=== PATIENT | male | born 1965 | race Caucasian/White ===

== ENCOUNTER 2016-12-18 00:51 | Inpatient (IN) | payer MEDICARE, MEDICAID ==
[~2016-12-18] VITALS: Ht 193 cm; Wt 92.0 kg
[2016-12-18] MEDS ORDERED: HYDROmorphone 1 MG/ML, 1ML IM ONE (02:00)
[2016-12-18] MEDS ORDERED: HYDROmorphone 1 MG/ML, 1ML ONE (02:31)
[2016-12-18] MEDS ORDERED: MORPHINE SULFATE 4 MG/ML, 1ML ONE ×2 (03:14→09:23)
[2016-12-18] MEDS ORDERED: ONDANSETRON 2MG/ML, 2ML ONE ×2 (03:14→16:16)
[2016-12-18] MEDS ORDERED: SODIUM CHLORIDE 0.9% 1,000 ML IV ONE (03:19)
[2016-12-18 03:24] LABS: HEMATOCRIT 42.3 % (39.2-51.8); HEMOGLOBIN 14.2 g/dL (13.7-18.0); WHITE BLOOD COUNT 9.4 x10^3/uL (3.4-10)
[2016-12-18] MEDS ORDERED: ONDANSETRON 2MG/ML, 2ML IVPush ONE (03:30)
[2016-12-18] MEDS ORDERED: MORPHINE SULFATE 4 MG/ML, 1ML IVPush PRN ×2 (03:30)
[2016-12-18] MEDS ORDERED: ONDANSETRON 2MG/ML, 2ML IVPush PRN ×2 (03:30→18:00)
[2016-12-18 03:32] LABS: BLOOD UREA NITROGEN 12 mg/dL (7-18)
[2016-12-18] MEDS ORDERED: HYDROmorphone 2 MG/ML, 1ML IVPush PRN (04:30)
[2016-12-18] MEDS ORDERED: POTASSIUM CHLORIDE 20 MEQ TAB.ER.PRT PO ONE (04:30)
[2016-12-18] MEDS ORDERED: POLYETHYLENE GLYCOL 17 GM PACKET PO PRN (04:30)
[2016-12-18] MEDS: ENOXAPARIN 40 MG/0.4 ML SQ SCH (04:30)
[2016-12-18] MEDS ORDERED: BISACODYL 10 MG SUPP PR PRN (04:30)
[2016-12-18] MEDS ORDERED: DOCUSATE 100 MG CAPSULE PO PRN (04:30)
[2016-12-18] MEDS: SODIUM CHLORIDE 0.9% 1,000 ML IV SCH ×2 (04:56→14:14)
[2016-12-18 05:09] LABS: IS PT STATUS REG ER OR PRE ER? NO
[2016-12-18] MEDS: INSULIN ASPART 100 UNITS/ML, PEN SQ-INSULIN SCH ×4 (06:27→21:00)
[2016-12-18] MEDS: MORPHINE SULFATE 4 MG/ML, 1ML IVPush PRN ×7 (06:29→22:49)
[2016-12-18] MEDS: FAMOTIDINE 20 MG/2 ML IVPush SCH ×2 (09:00→21:00)
[2016-12-18 14:35] VITALS: BP 119/68
[2016-12-18] MEDS ORDERED: HYDROmorphone 2 MG/ML, 1ML ONE (16:12)
[2016-12-18] MEDS ORDERED: MIDAZOLAM 1 MG/ML, 2ML ONE (16:12)
[2016-12-18] MEDS ORDERED: FENTANYL PF 100 MCG/2ML ONE ×5 (16:12→19:53)
[2016-12-18] MEDS ORDERED: ROCURONIUM 10 MG/ML ONE (16:16)
[2016-12-18] MEDS ORDERED: SUCCINYLCHOLINE 20 MG/ML, 10ML ONE (16:16)
[2016-12-18] MEDS ORDERED: CEFAZOLIN 1,000 MG ONE (16:16)
[2016-12-18] MEDS ORDERED: PROPOFOL 10 MG/ML, 20ML ONE (16:16)
[2016-12-18] MEDS ORDERED: hydrALAzine 20 MG/ML, 1ML IV PRN (18:00)
[2016-12-18] MEDS ORDERED: ACETAMINOPHEN 325 MG TABLET PO PRN (18:00)
[2016-12-18] MEDS ORDERED: LABETALOL 5MG/ML, 20ML IV PRN (18:00)
[2016-12-18] MEDS ORDERED: HYDROmorphone 1 MG/ML, 1ML IV PRN (18:00)
[2016-12-18] MEDS ORDERED: METOCLOPRAMIDE 5 MG/ML, 2ML IV PRN (18:00)
[2016-12-18] MEDS ORDERED: OXYcodone 5 MG/5 ML ORAL.SOL UDC PO PRN (18:00)
[2016-12-18] MEDS ORDERED: OXYcodone 5 MG/5 ML ORAL.SOL UDC ONE (19:20)
[2016-12-18] MEDS ORDERED: ACETAMINOPHEN 650 MG/20.3 ML UDC ONE (19:20)
[2016-12-18] MEDS: FENTANYL PF 100 MCG/2ML IV PRN ×4 (19:22→20:00)
[2016-12-18] MEDS ORDERED: LEVO50TA5 PO (23:15)
[2016-12-18] MEDS ORDERED: ATOR20TA9 PO (23:15)
[2016-12-18] MEDS ORDERED: elavil PO (23:15)
[2016-12-18] MEDS ORDERED: CLON2TAB PO (23:15)
[2016-12-18] MEDS ORDERED: INSU100V8 SQ (23:15)
[2016-12-18] MEDS ORDERED: OXYC10TA6 PO (23:15)
[2016-12-19 00:01] VITALS: BP 104/59
[2016-12-19] MEDS: MORPHINE SULFATE 4 MG/ML, 1ML IVPush PRN ×4 (01:17→08:47)
[2016-12-19] MEDS: CEFAZOLIN PMX 2GM/50ML 50 ML IVPB SCH ×2 (01:17→09:59)
[2016-12-19 04:00] VITALS: BP 98/65
[2016-12-19 05:20] LABS: ASPARTATE AMINO TRANSFERASE 7 U/L (15-37); BLOOD UREA NITROGEN 17 mg/dL (7-18)
[2016-12-19 05:25] LABS: HEMATOCRIT 33.2 % (39.2-51.8); HEMOGLOBIN 11.1 g/dL (13.7-18.0); WHITE BLOOD COUNT 7.7 x10^3/uL (3.4-10)
[2016-12-19] MEDS: SODIUM CHLORIDE 0.9% 1,000 ML IV SCH ×2 (06:25→14:30)
[2016-12-19] MEDS: INSULIN ASPART 100 UNITS/ML, PEN SQ-INSULIN SCH ×4 (07:00→21:00)
[2016-12-19 08:02] VITALS: BP 113/73
[2016-12-19] MEDS: ENOXAPARIN 40 MG/0.4 ML SQ SCH (08:47)
[2016-12-19] MEDS ORDERED: OXYcodone IR 5MG TABLET PO PRN (09:00)
[2016-12-19] MEDS ORDERED: OXYcodone IR 5MG TABLET ONE ×2 (09:57→20:25)
[2016-12-19 12:07] VITALS: BP 110/66
[2016-12-19] MEDS: OXYcodone IR 30 MG TABLET PO PRN ×3 (12:09→20:30)
[2016-12-19 19:51] VITALS: BP 120/71
[2016-12-19] MEDS: FAMOTIDINE 20 MG TABLET PO SCH (21:00)
[2016-12-20] MEDS: SODIUM CHLORIDE 0.9% 1,000 ML IV SCH ×3 (00:30→20:26)
[2016-12-20 01:07] VITALS: BP 126/65
[2016-12-20] MEDS ORDERED: OXYcodone IR 5MG TABLET ONE (04:24)
[2016-12-20] MEDS: OXYcodone IR 30 MG TABLET PO PRN ×5 (04:30→21:24)
[2016-12-20] MEDS: INSULIN ASPART 100 UNITS/ML, PEN SQ-INSULIN SCH ×4 (07:00→21:00)
[2016-12-20 08:40] VITALS: BP 109/61
[2016-12-20] MEDS: FAMOTIDINE 20 MG TABLET PO SCH ×2 (08:47→21:24)
[2016-12-20] MEDS: ENOXAPARIN 40 MG/0.4 ML SQ SCH (08:47)
[2016-12-20 12:50] VITALS: BP 103/67
[2016-12-20 19:25] VITALS: BP 95/58
[2016-12-21 02:33] VITALS: BP 102/63
[2016-12-21] MEDS: OXYcodone IR 30 MG TABLET PO PRN ×5 (04:09→21:07)
[2016-12-21] MEDS: SODIUM CHLORIDE 0.9% 1,000 ML IV SCH ×2 (05:21→16:30)
[2016-12-21 05:30] LABS: HEMOGLOBIN 10.4 g/dL (13.7-18.0); WHITE BLOOD COUNT 7.2 x10^3/uL (3.4-10)
[2016-12-21 05:41] LABS: BLOOD UREA NITROGEN 12 mg/dL (7-18)
[2016-12-21] MEDS: INSULIN ASPART 100 UNITS/ML, PEN SQ-INSULIN SCH ×4 (07:40→21:00)
[2016-12-21 08:24] VITALS: BP 103/56
[2016-12-21] MEDS ORDERED: OXYcodone IR 5MG TABLET ONE (08:27)
[2016-12-21] MEDS: ENOXAPARIN 40 MG/0.4 ML SQ SCH (08:31)
[2016-12-21] MEDS: FAMOTIDINE 20 MG TABLET PO SCH ×2 (10:39→21:07)
[2016-12-21 14:00] VITALS: BP 101/59
[2016-12-21 19:10] VITALS: BP 101/57
[2016-12-22] MEDS: SODIUM CHLORIDE 0.9% 1,000 ML IV SCH (02:30)
[2016-12-22 02:37] VITALS: BP 94/52
[2016-12-22] MEDS: OXYcodone IR 30 MG TABLET PO PRN ×3 (06:09→14:05)
[2016-12-22] MEDS ORDERED: ENOX40SY4 SQ (06:13)
[2016-12-22] MEDS: INSULIN ASPART 100 UNITS/ML, PEN SQ-INSULIN SCH ×2 (07:00→11:00)
[2016-12-22 08:00] VITALS: BP 109/66
[2016-12-22] MEDS: ENOXAPARIN 40 MG/0.4 ML SQ SCH (08:38)
[2016-12-22] MEDS: FAMOTIDINE 20 MG TABLET PO SCH (08:38)
[2016-12-22] MEDS ORDERED: PNEUMOCOCCAL 23 VACCINE IM-VACC ONE (10:30)
[2016-12-22] MEDS ORDERED: IBUPROFEN 200 MG TABLET PO PRN (11:00)
[2016-12-22 12:35] VITALS: BP 97/58
[2016-12-22 14:05] VITALS: BP 98/56
== END 2016-12-22 14:15 | DRG 480 ==
LOC: ED 03:10 → EDIP 03:19 → 4NOR 04:30
PROVIDERS: ADMIT Hospitalist; ATTEND Internal Medicine
PROC: 0QS604Z Reposition Right Upper Femur with Internal Fixation Device, Open Approach (ICD-10-PCS; principal; 2016-12-18 14:30)
DX: S72.001A Fracture of unspecified part of neck of right femur, initial encounter for closed fracture (principal); E43 Unspecified severe protein-calorie malnutrition; D62 Acute posthemorrhagic anemia; E11.9 Type 2 diabetes mellitus without complications; E87.6 Hypokalemia; F41.9 Anxiety disorder, unspecified; F17.210 Nicotine dependence, cigarettes, uncomplicated; G89.29 Other chronic pain; F11.90 Opioid use, unspecified, uncomplicated; M54.9 Dorsalgia, unspecified; Z68.24 Body mass index [BMI] 24.0-24.9, adult; Z88.1 Allergy status to other antibiotic agents; Z88.5 Allergy status to narcotic agent; Z88.0 Allergy status to penicillin; Z88.2 Allergy status to sulfonamides; Z88.8 Allergy status to other drugs, medicaments and biological substances; V92.09XA Drowning and submersion due to fall off unspecified watercraft, initial encounter; Y93.89 Activity, other specified; Y92.89 Other specified places as the place of occurrence of the external cause; Y99.8 Other external cause status
CPT/HCPCS: 36415; 72170; 76001; 80048; 80053; 82040; 82962; 83036; 84484; 85025; 85610; 90732; 93005; 96374; 96375; C1713; J0690; J1170; J1650; J1815; J2250; J2405; J2704; J3010; J0330; J7030

== ENCOUNTER → 2017-06-30 | Outpatient (CLI) | payer MEDICARE, MEDICAID ==
[~2017-06-30] MED LIST: ATOR20TA9 PO; CLON2TAB PO; ENOX40SY4 SQ; INSU100V8 SQ; LEVO50TA5 PO; OXYC10TA6 PO; elavil PO
[2017-06-30 15:11] LABS: BASOPHILS # (AUTO) 0.03 x10^3/uL (0-0.1); BASOPHILS % (AUTO) 0 % (0-1); EOSINOPHILS # (AUTO) 0.15 x10^3/uL (0-0.4); EOSINOPHILS % (AUTO) 1 % (1-7); LYMPHOCYTES # (AUTO) 2.61 x10^3/uL (1-3.4); LYMPHOCYTES % (AUTO) 25 % (22-44); MD NO; MEAN CORPUSCULAR HEMOGLOBIN 29.9 pg (27.5-34.5); MEAN CORPUSCULAR HGB CONC 33.5 g/dL (33.2-36.2); MEAN CORPUSCULAR VOLUME 89.3 fL (81-97); MEAN PLATELET VOLUME 7.4 fL (7.4-10.4); MONOCYTES # (AUTO) 0.36 x10^3/uL (0.2-0.8); MONOCYTES % (AUTO) 4 % (2-9); NEUTROPHILS # (AUTO) 7.25 x10^3/uL (1.8-6.8); NEUTROPHILS % (AUTO) 70 % (42-75); PLATELET COUNT 542 x10^3/uL (130-400); RED BLOOD COUNT 4.79 x10^6/uL (4.38-5.82); RED CELL DISTRIBUTION WIDTH 15.3 % (9.4-14.8)
[2017-06-30 15:15] LABS: MICROSCOPIC AUTO
[2017-06-30 15:20] LABS: CULTURE INDICATED? YES
[2017-06-30 15:23] LABS: ANION GAP 6 mmol/L (5-15); CALCIUM 9.7 mg/dL (8.5-10.1); CHLORIDE 107 mmol/L (98-107)
[2017-06-30 15:27] LABS: ALANINE AMINOTRANSFERASE 14 U/L (12-78); ALKALINE PHOSPHATASE 106 U/L (45-117); BILIRUBIN,TOTAL 0.6 mg/dL (0.2-1.0); CREATININE 0.79 mg/dL (0.7-1.3); TOTAL PROTEIN 7.9 g/dL (6.4-8.2)
== END ==
LOC: STAR 13:58
PROVIDERS: ATTEND Orthopaedic Surgery
DX: Z01.818 Encounter for other preprocedural examination (principal); M25.551 Pain in right hip; M16.11 Unilateral primary osteoarthritis, right hip; R82.99 Other abnormal findings in urine
CPT/HCPCS: 36415; 80053; 81001; 85025; 87077; 87081; 87086; 93005

== ENCOUNTER 2017-07-08 06:37 | Inpatient (IN) | payer MEDICARE, MEDICAID ==
[~2017-07-08] VITALS: Ht 193 cm; Wt 86.5 kg
[2017-07-08] MEDS ORDERED: LACTATED RINGERS 1,000 ML IV SCH (07:37)
[2017-07-08] MEDS ORDERED: AMIT10TA PO ×2 (08:17)
[2017-07-08] MEDS ORDERED: NAPR-685 PO (08:17)
[2017-07-08] MEDS ORDERED: SCOPOLAMINE PATCH, 1.5MG PATCH.TD72 TD ONE ×3 (08:23→13:00)
[2017-07-08] MEDS ORDERED: TRANEXAMIC ACID 100 MG/ML, 10ML ONE (08:39)
[2017-07-08] MEDS ORDERED: morphine SULFATE/PF 1 MG/ML, 10ML ONE (08:39)
[2017-07-08] MEDS ORDERED: KETOROLAC 60 MG/2 ML ONE (08:39)
[2017-07-08] MEDS ORDERED: MIDAZOLAM 1 MG/ML, 2ML ONE (08:43)
[2017-07-08] MEDS ORDERED: SUFentanil 50 MCG/ML, 2ML ONE (08:43)
[2017-07-08] MEDS ORDERED: KETAMINE 10 MG/ML, 20ML ONE (08:43)
[2017-07-08] MEDS ORDERED: CLINDAMYCIN 150 MG/ML, 6ML ONE (09:13)
[2017-07-08] MEDS ORDERED: SUCCINYLCHOLINE 20 MG/ML, 10ML ONE (09:25)
[2017-07-08] MEDS ORDERED: VASOPRESSIN 20 UNIT/ML, 1ML ONE (09:25)
[2017-07-08] MEDS ORDERED: ONDANSETRON 2MG/ML, 2ML ONE (09:25)
[2017-07-08] MEDS ORDERED: DEXAMETHASONE 4 MG/ML, 1ML ONE (09:25)
[2017-07-08] MEDS ORDERED: PROPOFOL 10 MG/ML, 20ML ONE (09:25)
[2017-07-08] MEDS ORDERED: ROCURONIUM 10 MG/ML,10ML ONE (09:25)
[2017-07-08] MEDS ORDERED: SODIUM CHLORIDE 0.9% 100 ML ONE (09:34)
[2017-07-08] MEDS ORDERED: EPINEPHRINE 1 MG/ML, 1ML ONE (09:34)
[2017-07-08] MEDS ORDERED: MIDAZOLAM 1 MG/ML, 2ML IV PRN (10:30)
[2017-07-08] MEDS ORDERED: LORazepam 2 MG/ML, 1ML IVPush PRN (10:30)
[2017-07-08] MEDS ORDERED: FENTANYL PF 100 MCG/2ML IV PRN (10:30)
[2017-07-08] MEDS ORDERED: ACETAMINOPHEN 325 MG TABLET PO PRN (10:30)
[2017-07-08] MEDS ORDERED: EPHEDRINE 50 MG/ML, 1ML IVPush PRN (10:30)
[2017-07-08] MEDS ORDERED: MEPERIDINE/PF 25MG/0.5ML IVPush PRN (10:30)
[2017-07-08] MEDS ORDERED: PROMETHAZINE 12.5 MG SUPP PR PRN ×2 (10:30→13:00)
[2017-07-08] MEDS ORDERED: ONDANSETRON 2MG/ML, 2ML IVPush PRN (10:30)
[2017-07-08] MEDS ORDERED: LABETALOL 5MG/ML, 20ML IV PRN (10:30)
[2017-07-08] MEDS ORDERED: PROMETHAZINE 25 MG/ML, 1ML IV PRN (10:30)
[2017-07-08] MEDS ORDERED: PROMETHAZINE 25 MG/ML, 1ML IM PRN (13:00)
[2017-07-08] MEDS ORDERED: ONDANSETRON 4 MG TABLET PO PRN (13:00)
[2017-07-08] MEDS ORDERED: MAGNESIUM HYDROXIDE 8%, 30ML UDC PO PRN (13:00)
[2017-07-08] MEDS ORDERED: ALUMINUM/MAG/SIMETHICONE 30 ML UDC PO PRN (13:00)
[2017-07-08] MEDS ORDERED: ONDANSETRON 2MG/ML, 2ML IV PRN (13:00)
[2017-07-08] MEDS ORDERED: SENNA/DOCUSATE TABLET PO PRN (13:00)
[2017-07-08] MEDS ORDERED: BISACODYL 10 MG SUPP PR PRN (13:00)
[2017-07-08] MEDS ORDERED: morphine SULFATE 10 MG/ML, 1ML ONE (13:04)
[2017-07-08] MEDS ORDERED: ACETAMINOPHEN 650 MG/20.3 ML UDC ONE (13:04)
[2017-07-08] MEDS ORDERED: OXYcodone 5 MG/5 ML ORAL.SOL UDC ONE ×2 (13:04→13:17)
[2017-07-08] MEDS: OXYcodone 5 MG/5 ML ORAL.SOL UDC PO PRN ×2 (13:08→13:19)
[2017-07-08] MEDS: morphine SULFATE 10 MG/ML, 1ML IV PRN ×4 (13:11→21:23)
[2017-07-08 14:01] VITALS: BP 102/64
[2017-07-08] MEDS ORDERED: CLINDAMYCIN PMX 600MG/50ML 50 ML IVPB SCH (15:00)
[2017-07-08] MEDS ORDERED: SODIUM CHLORIDE 0.9% 1,000ML IVBOLUS ONE (16:00)
[2017-07-08] MEDS: CLINDAMYCIN PMX 600MG/50ML 50 ML IVPB SCH (17:00)
[2017-07-08] MEDS: ASPIRIN 325 MG TABLET EC PO SCH (18:23)
[2017-07-08 19:56] VITALS: BP 100/58
[2017-07-08 20:15] VITALS: BP 100/58
[2017-07-08] MEDS: OXYcodone IR 5MG TABLET PO PRN ×2 (20:37→23:53)
[2017-07-08] MEDS: SODIUM CHLORIDE 0.9% 1,000 ML IV SCH (21:24)
[2017-07-08] MEDS: AMITRIPTYLINE 10 MG TABLET PO SCH (22:35)
[2017-07-08] MEDS: LEVOTHYROXINE 50 MCG TABLET PO SCH (22:36)
[2017-07-08] MEDS: ATORVASTATIN 20 MG TABLET PO SCH (22:36)
[2017-07-08 23:34] VITALS: BP 96/51
[2017-07-09] MEDS: CLINDAMYCIN PMX 600MG/50ML 50 ML IVPB SCH (00:44)
[2017-07-09] MEDS: OXYcodone IR 5MG TABLET PO PRN ×4 (03:56→20:05)
[2017-07-09 04:00] VITALS: BP 90/56
[2017-07-09 05:42] LABS: BASOPHILS # (AUTO) 0.01 x10^3/uL (0-0.1); BASOPHILS % (AUTO) 0 % (0-1); EOSINOPHILS # (AUTO) 0.02 x10^3/uL (0-0.4); EOSINOPHILS % (AUTO) 0 % (1-7); LYMPHOCYTES # (AUTO) 1.51 x10^3/uL (1-3.4); LYMPHOCYTES % (AUTO) 20 % (22-44); MD NO; MEAN CORPUSCULAR HEMOGLOBIN 29.7 pg (27.5-34.5); MEAN CORPUSCULAR HGB CONC 33.3 g/dL (33.2-36.2); MEAN CORPUSCULAR VOLUME 89.3 fL (81-97); MEAN PLATELET VOLUME 7.7 fL (7.4-10.4); MONOCYTES # (AUTO) 0.51 x10^3/uL (0.2-0.8); MONOCYTES % (AUTO) 7 % (2-9); NEUTROPHILS # (AUTO) 5.37 x10^3/uL (1.8-6.8); NEUTROPHILS % (AUTO) 72 % (42-75); PLATELET COUNT 158 x10^3/uL (130-400); RED BLOOD COUNT 2.63 x10^6/uL (4.38-5.82); RED CELL DISTRIBUTION WIDTH 15.6 % (9.4-14.8)
[2017-07-09] MEDS: morphine SULFATE 10 MG/ML, 1ML IV PRN (06:29)
[2017-07-09] MEDS: ASPIRIN 325 MG TABLET EC PO SCH ×2 (06:29→17:11)
[2017-07-09] MEDS: SODIUM CHLORIDE 0.9% 1,000 ML IV SCH ×2 (06:51→16:26)
[2017-07-09 08:27] VITALS: BP 113/53
[2017-07-09] MEDS: AMITRIPTYLINE 10 MG TABLET PO SCH ×2 (08:32→20:04)
[2017-07-09] MEDS: KETOROLAC 30 MG/1 ML IV SCH ×2 (13:23→20:05)
[2017-07-09] MEDS: ATORVASTATIN 20 MG TABLET PO SCH (20:05)
[2017-07-09] MEDS: LEVOTHYROXINE 50 MCG TABLET PO SCH (20:05)
[2017-07-09 20:13] VITALS: BP 128/72
[2017-07-10] MEDS: SODIUM CHLORIDE 0.9% 1,000 ML IV SCH ×3 (03:00→23:00)
[2017-07-10] MEDS: OXYcodone IR 5MG TABLET PO PRN ×4 (05:26→20:17)
[2017-07-10] MEDS: ASPIRIN 325 MG TABLET EC PO SCH ×2 (05:26→18:00)
[2017-07-10] MEDS: KETOROLAC 30 MG/1 ML IV SCH (05:26)
[2017-07-10 08:00] VITALS: BP 103/62
[2017-07-10] MEDS: AMITRIPTYLINE 10 MG TABLET PO SCH ×2 (08:53→20:17)
[2017-07-10 15:04] VITALS: BP 92/54
[2017-07-10 19:32] VITALS: BP 95/64
[2017-07-10] MEDS: ATORVASTATIN 20 MG TABLET PO SCH (20:17)
[2017-07-10] MEDS: LEVOTHYROXINE 50 MCG TABLET PO SCH (20:17)
[2017-07-11] MEDS: OXYcodone IR 5MG TABLET PO PRN ×2 (04:35→08:58)
[2017-07-11 04:38] VITALS: BP 108/62
[2017-07-11] MEDS: ASPIRIN 325 MG TABLET EC PO SCH (06:26)
[2017-07-11] MEDS: SODIUM CHLORIDE 0.9% 1,000 ML IV SCH (07:41)
[2017-07-11 08:20] VITALS: BP 92/52
[2017-07-11] MEDS: AMITRIPTYLINE 10 MG TABLET PO SCH (08:57)
[2017-07-11 09:01] VITALS: BP 96/51
[2017-07-11] MEDS ORDERED: DOCU-131 PO (09:21)
[2017-07-11] MEDS ORDERED: ASPI-650 PO (09:22)
[2017-07-11] MEDS ORDERED: OXYC5TAB3 PO (09:23)
== END 2017-07-11 11:50 | disposition home or self-care (01) | DRG 470 ==
LOC: ORIP 06:37 → 4NOR 14:14
PROVIDERS: ADMIT Orthopaedic Surgery; ATTEND Orthopaedic Surgery
PROC: 01QF0ZZ Repair Sciatic Nerve, Open Approach (ICD-10-PCS; 2017-07-08)
PROC: 0SR901Z Replacement of Right Hip Joint with Metal Synthetic Substitute, Open Approach (ICD-10-PCS; principal; 2017-07-08 08:30)
DX: T84.84XA Pain due to internal orthopedic prosthetic devices, implants and grafts, initial encounter (principal); Z96.641 Presence of right artificial hip joint; E11.9 Type 2 diabetes mellitus without complications; Z88.0 Allergy status to penicillin; Y83.8 Other surgical procedures as the cause of abnormal reaction of the patient, or of later complication, without mention of misadventure at the time of the procedure; Y92.89 Other specified places as the place of occurrence of the external cause; Z88.1 Allergy status to other antibiotic agents; Z88.2 Allergy status to sulfonamides; Z88.8 Allergy status to other drugs, medicaments and biological substances
CPT/HCPCS: 36415; 82962; 85014; 85018; 85025; 86850; 86900; C1713; J0171; J1100; J1885; J2250; J2274; J2405; J2704; C1776; J0330; J2270; J7030; J7120

== ENCOUNTER → 2018-03-18 | Outpatient (CLI) | payer MEDICARE, MEDICAID ==
[~2018-03-18] MED LIST changes: +AMIT10TA PO; +ASPI-650 PO; +DOCU-131 PO; +NAPR-685 PO; +OXYC5TAB3 PO
[2018-03-18 12:27] LABS: BASOPHILS # (AUTO) 0.04 x10^3/uL (0-0.1); BASOPHILS % (AUTO) 0 % (0-1); EOSINOPHILS # (AUTO) 0.11 x10^3/uL (0-0.4); EOSINOPHILS % (AUTO) 1 % (1-7); LYMPHOCYTES # (AUTO) 2.37 x10^3/uL (1-3.4); LYMPHOCYTES % (AUTO) 29 % (22-44); MD NO; MEAN CORPUSCULAR HEMOGLOBIN 30.7 pg (27.5-34.5); MEAN CORPUSCULAR HGB CONC 33.9 g/dL (33.2-36.2); MEAN CORPUSCULAR VOLUME 90.5 fL (81-97); MEAN PLATELET VOLUME 7.8 fL (7.4-10.4); MONOCYTES # (AUTO) 0.53 x10^3/uL (0.2-0.8); MONOCYTES % (AUTO) 7 % (2-9); NEUTROPHILS # (AUTO) 5.13 x10^3/uL (1.8-6.8); NEUTROPHILS % (AUTO) 63 % (42-75); PLATELET COUNT 230 x10^3/uL (130-400); RED BLOOD COUNT 4.86 x10^6/uL (4.38-5.82); RED CELL DISTRIBUTION WIDTH 14.5 % (9.4-14.8)
[2018-03-18 12:38] LABS: ALANINE AMINOTRANSFERASE 17 U/L (12-78); ALBUMIN 4.7 g/dL (3.4-5.0); ANION GAP 7 mmol/L (5-15); CALCIUM 9.4 mg/dL (8.5-10.1); CHLORIDE 107 mmol/L (98-107); INTERNATIONAL NORMALIZED RATIO 0.95 (0.93-1.1); PROTHROMBIN TIME 10.1 Seconds (9.6-11.5)
[2018-03-18 12:41] LABS: ALKALINE PHOSPHATASE 120 U/L (45-117); BILIRUBIN,TOTAL 0.7 mg/dL (0.2-1.0); TOTAL PROTEIN 8.2 g/dL (6.4-8.2)
[2018-03-18 12:43] LABS: MICROSCOPIC INDICATED
[2018-03-18 12:46] LABS: HEMOGLOBIN A1C 5.8 % (4.2-6.3)
[2018-03-18 12:58] LABS: CULTURE INDICATED? NO
== END | disposition home or self-care (01) ==
LOC: STAR 11:01
PROVIDERS: ATTEND Orthopaedic Surgery
DX: Z01.818 Encounter for other preprocedural examination (principal); M17.11 Unilateral primary osteoarthritis, right knee
CPT/HCPCS: 36415; 80053; 81001; 83036; 85025; 85610; 85730; 87081; 87806; 93005; G0475

== ENCOUNTER 2018-03-22 06:47 | Observation (INO) | payer MEDICARE, MEDICAID ==
[~2018-03-22] VITALS: Ht 190.5 cm; Wt 96.8 kg
[~2018-03-22 06:47] MED LIST changes: +ATOR20TA37 PO; -ATOR20TA9 PO; +EPINEPHRINE 1 MG/ML, 1ML ONE; +KETOROLAC 60 MG/2 ML ONE; +ROPIvacaine/PF 0.2%, 20 ML ONE; +TRANEXAMIC ACID 100 MG/ML, 10ML ONE
[2018-03-22] MEDS ORDERED: LACTATED RINGERS 1,000 ML IV SCH (07:18)
[2018-03-22] MEDS ORDERED: ACETAMINOPHEN 500 MG TABLET PO ONE (07:30)
[2018-03-22 07:43] VITALS: BP 103/70
[2018-03-22] MEDS ORDERED: MIDAZOLAM 1 MG/ML, 2ML ONE (08:09)
[2018-03-22] MEDS ORDERED: FENTANYL PF 250 MCG/5ML ONE (08:09)
[2018-03-22] MEDS ORDERED: PROMETHAZINE 12.5 MG SUPP PR PRN (09:00)
[2018-03-22] MEDS ORDERED: PROMETHAZINE 25 MG/ML, 1ML IM PRN (09:00)
[2018-03-22] MEDS ORDERED: ALUMINUM/MAG/SIMETHICONE 30 ML UDC PO PRN (09:00)
[2018-03-22] MEDS ORDERED: BISACODYL 10 MG SUPP PR PRN (09:00)
[2018-03-22] MEDS ORDERED: TRANEXAMIC ACID 1,000 MG in SODIUM CHLORIDE 0.9% 100 ML IVPB ONE (09:00)
[2018-03-22] MEDS ORDERED: ONDANSETRON 2MG/ML, 2ML IV PRN ×2 (09:00→10:00)
[2018-03-22] MEDS ORDERED: DIPHENHYDRAMINE 25 MG CAPSULE PO PRN (09:00)
[2018-03-22] MEDS: TAMSULOSIN 0.4 MG CAP.ER.24H PO SCH (09:00)
[2018-03-22] MEDS ORDERED: ONDANSETRON 4 MG TABLET PO PRN (09:00)
[2018-03-22] MEDS ORDERED: ACETAMINOPHEN 650 MG/20.3 ML UDC PO PRN (09:00)
[2018-03-22] MEDS ORDERED: MAGNESIUM HYDROXIDE 8%, 30ML UDC PO PRN (09:00)
[2018-03-22] MEDS ORDERED: SENNA/DOCUSATE TABLET PO PRN (09:00)
[2018-03-22] MEDS: DOCUSATE 100 MG CAPSULE PO SCH ×2 (09:00→22:51)
[2018-03-22] MEDS ORDERED: morphine SULFATE 10 MG/ML, 1ML IV PRN (09:00)
[2018-03-22] MEDS ORDERED: PROMETHAZINE 25 MG/ML, 1ML IV PRN (10:00)
[2018-03-22] MEDS ORDERED: MIDAZOLAM 1 MG/ML, 2ML IV PRN (10:00)
[2018-03-22] MEDS ORDERED: MEPERIDINE/PF 25MG/0.5ML IVPush PRN (10:00)
[2018-03-22] MEDS ORDERED: hydrALAzine 20 MG/ML, 1ML IV PRN (10:00)
[2018-03-22] MEDS ORDERED: OXYcodone 5 MG/5 ML ORAL.SOL UDC PO PRN (10:00)
[2018-03-22] MEDS ORDERED: MORPHINE SULFATE 4 MG/ML, 1ML IVPush PRN (10:00)
[2018-03-22] MEDS ORDERED: FENTANYL PF 100 MCG/2ML IV PRN (10:00)
[2018-03-22] MEDS ORDERED: LABETALOL 5MG/ML, 20ML IV PRN (10:00)
[2018-03-22] MEDS ORDERED: ALBUTEROL/IPRATROPIUM 2.5MG/0.5MG, 3 ML NPPB PRN (10:00)
[2018-03-22] MEDS ORDERED: BUPIVACAINE/PF-EPI 0.5% 1:200K ONE (10:35)
[2018-03-22] MEDS ORDERED: ONDANSETRON 2MG/ML, 2ML ONE (10:37)
[2018-03-22] MEDS ORDERED: PROPOFOL 10 MG/ML, 20ML ONE (10:37)
[2018-03-22] MEDS ORDERED: DEXAMETHASONE 4 MG/ML, 1ML ONE (10:37)
[2018-03-22] MEDS ORDERED: CEFAZOLIN 1,000 MG ONE (10:37)
[2018-03-22] MEDS ORDERED: BUPIVACAINE/PF-EPI 0.5% 1:200K INFIL ONE (10:38)
[2018-03-22] MEDS ORDERED: BUPIVACAINE/PF 0.25% ONE (10:38)
[2018-03-22] MEDS ORDERED: MORPHINE SULFATE 4 MG/ML, 1ML ONE (10:38)
[2018-03-22] MEDS ORDERED: LIDOCAINE-MPF 2% ,5ML ONE (10:38)
[2018-03-22] MEDS ORDERED: OXYcodone 5 MG/5 ML ORAL.SOL UDC ONE (11:33)
[2018-03-22 14:58] VITALS: BP_SYST 105; BP_SYST 113; BP_DIAS 54; BP_DIAS 73
[2018-03-22] MEDS: D5%-0.45NACL+KCL 20MEQ 1,000 ML IV SCH (15:00)
[2018-03-22] MEDS: OXYcodone IR 5MG TABLET PO PRN ×2 (16:55→23:06)
[2018-03-22] MEDS: CEFAZOLIN PMX 1GM/50ML 50 ML IVPB SCH (18:15)
[2018-03-22] MEDS: ASPIRIN 81 MG TABLET EC PO SCH (18:15)
[2018-03-22 20:46] VITALS: BP 102/65
[2018-03-22] MEDS ORDERED: AMITRIPTYLINE 10 MG TABLET PO ONE (23:00)
[2018-03-23 00:18] VITALS: BP 103/64
[2018-03-23] MEDS: D5%-0.45NACL+KCL 20MEQ 1,000 ML IV SCH ×2 (01:00→16:00)
[2018-03-23] MEDS: CEFAZOLIN PMX 1GM/50ML 50 ML IVPB SCH (01:49)
[2018-03-23 04:00] VITALS: BP 105/65
[2018-03-23] MEDS: ASPIRIN 81 MG TABLET EC PO SCH ×2 (06:03→18:32)
[2018-03-23] MEDS: OXYcodone IR 5MG TABLET PO PRN ×3 (06:05→14:25)
[2018-03-23 06:42] VITALS: BP 125/63
[2018-03-23] MEDS: TAMSULOSIN 0.4 MG CAP.ER.24H PO SCH (08:57)
[2018-03-23] MEDS: DOCUSATE 100 MG CAPSULE PO SCH (08:58)
[2018-03-23] MEDS: KETOROLAC 30 MG/1 ML IV SCH ×2 (08:58→17:00)
[2018-03-23] MEDS ORDERED: AMITRIPTYLINE 10 MG TABLET PO SCH ×2 (09:00→21:00)
[2018-03-23] MEDS ORDERED: ASPI81TA45 PO (09:10)
[2018-03-23] MEDS ORDERED: ONDA4TAB13 SL (09:11)
[2018-03-23] MEDS ORDERED: DOCU-131 PO (09:11)
[2018-03-23] MEDS ORDERED: CELE200C PO (09:12)
[2018-03-23 12:02] VITALS: BP 111/64
[2018-03-23 20:48] VITALS: BP 109/68
== END 2018-03-23 17:48 | disposition home or self-care (01) ==
LOC: OUT 06:47 → ORIP 08:35 → 4NOR 13:01
PROVIDERS: ADMIT Orthopaedic Surgery; ATTEND Orthopaedic Surgery
DX: M17.11 Unilateral primary osteoarthritis, right knee (principal); Z72.0 Tobacco use
CPT/HCPCS: 20680; 27447; 36415; 72170; 73560; 85014; 85018; 96365; 96366; 96375; 97110; 97161; C1713; C1776; G0378; J0171; J0690; J1100; J1885; J2250; J2405; J2704; J2795; J3010; J3490; J7120